=== PATIENT | male | born 1995 | race Caucasian/White ===

== ENCOUNTER 2019-09-23 18:50 | Emergency (ER) | payer SELFPAY ==
[~2019-09-23] VITALS: Ht 180.3 cm; Wt 83.9 kg
[2019-09-23 19:05] VITALS: BP 126/67
--- NOTE | 2019-09-23 19:33 | Emergency Room Report ---
History of Present Illness General Chief Complaint: Upper Respiratory Illness Source: Patient Present Illness HPI 24-year-old male with no significant past medical history here complaining of 2 days of generalized body ache cough and congestion. Denies any recent travel, or being exposed to people who have recently traveled. Denies any fever and chills. Patient is afebrile at triage. Denies chest pain, shortness of breath , palpitation, headache and dizziness. Denies abdominal pain, nausea vomiting. Reports that he took Tylenol for symptom relief. Also reports that he used cocaine in order to break his fever. Wheezing has been auscultated diffusely. Patient denies history of asthma. Does not have an inhaler. Denies all other associated symptoms. Patient is also a heavy tobacco smoker Allergies: Coded Allergies: No Known Allergies (Unverified , 09/23/19) Patient History Past Medical History: see triage record Past Surgical History: none Pertinent Family History: none Social History: Reports: smoking - tobacco, drug use - cocaine Immunizations: UTD Reviewed Nursing Documentation: PMH: Agreed; PSxH: Agreed Nursing Documentation-PMH Past Medical History: No Stated History Review of Systems All Other Systems: negative except mentioned in HPI Physical Exam Vital Signs Date Time Temp Pulse Resp B/P (MAP) Pulse Ox O2 Delivery O2 Flow Rate FiO2 09/23/19 18:59 97.2 67 18 126/67 (86) 100 Room Air Sp02 EP Interpretation: reviewed, normal General Appearance: no apparent distress, alert, GCS 15, non-toxic Head: normocephalic, atraumatic Eyes: bilateral eye normal inspection, bilateral eye PERRL ENT: hearing grossly normal, normal pharynx, no angioedema, normal voice Neck: full range of motion, supple, thyroid normal, no meningismus, no carotid bruits, supple/symm/no masses Respiratory: chest non-tender, lungs clear, normal breath sounds, no rhonchi, no respiratory distress, no retraction, no wheezing, speaking full sentences Cardiovascular #1: regular rate, rhythm, no edema, no murmur Gastrointestinal: normal bowel sounds, non tender, soft, non-distended, no guarding, no rebound Rectal: deferred Genitourinary: no CVA tenderness Musculoskeletal: back normal Neurologic: alert, motor strength/tone normal, oriented x3, sensory intact, responsive, speech normal Psychiatric: judgement/insight normal, memory normal, mood/affect normal, no suicidal/homicidal ideation Skin: no rash Lymphatic: no adenopathy Medical Decision Making PA Attestation All diagnoses and treatment plans were reviewed and discussed with my supervising physician Dr. Bashir Diagnostic Impression: Primary Impression: Upper respiratory infection ER Course 24-year-old male with no significant past medical history here complaining of 2 days of generalized body ache cough and congestion. Denies any recent travel, or being exposed to people who have recently traveled. Denies any fever and chills. Patient is afebrile at triage. Denies chest pain, shortness of breath , palpitation, headache and dizziness. Denies abdominal pain, nausea vomiting. Reports that he took Tylenol for symptom relief. Also reports that he used cocaine in order to break his fever. Wheezing has been auscultated diffusely. Patient denies history of asthma. Does not have an inhaler. Denies all other associated symptoms. Patient is also a heavy tobacco smoker Ddx considered but are not limited to: strep pharyngitis, URI, tonsillitis, peritonsillar abscess, influneza Vital signs: are WNL, pt. is afebrile H&PE are most consistent with: viral URI ORDERS: Chest x-ray, rapid influenza test, albuterol ED INTERVENTIONS: None required at this time. DISCHARGE: At this time pt. is stable for d/c to home. Will provide printed patient care instructions, and any necessary prescriptions. Care plan and follow up instructions have been discussed with the patient prior to discharge. Take medication as directed, follow-up with your primary care provider, if worsening symptoms return to the emergency room Chest X-Ray Diagnostic Results Chest X-Ray Diagnostic Results : Chest X-Ray Ordered: Yes # of Views/Limited/Complete: 1 View Indication: Other - Cough EP Interpretation: Yes PA Xray: Interpretation reviewed, by supervising MD, and agrees with findings. Interpretation: no consolidation, no effusion, no pneumothorax Impression: No acute disease Electronically Signed by: Nicole Dixon PA-C Last Vital Signs Date Time Temp Pulse Resp B/P (MAP) Pulse Ox O2 Delivery O2 Flow Rate FiO2 09/23/19 19:05 67 18 Room Air 09/23/19 19:05 97.2 126/67 100 Disposition: HOME, SELF-CARE Condition: Stable Scripts Albuterol Sulfate (VENTOLIN HFA) 18 Gm Hfa.aer.ad 2 PUFFS INH EVERY 6 HOURS, #18 GM 0 Refills Prov: Nicole Galan 09/23/19 Referrals: NOT CHOSEN IPA/MD,REFERRING (PCP) Patient Instructions: Upper Respiratory Infection, Adult Additional Instructions: Take medication as directed, follow-up with your primary care provider, increase oral hydration, if worsening symptoms return to emergency room Nicole Galan Sep 23, 2019 19:33
[2019-09-23] MEDS ORDERED: VENTOLIN HFA18 GM INH (19:50)
[2019-09-23 20:00] VITALS: BP 126/67
--- NOTE | 2019-09-24 12:51 | Diagnostic Imaging Report ---
Indication: Dyspnea Comparison: None A single view chest radiograph was obtained. Findings: Cardiomediastinal appearance is within normal limits for age. The lungs are clear. Pulmonary vascularity is appropriate. The diaphragmatic contour is smooth and costophrenic angles are sharp. No pleural effusions are identified. The bones are unremarkable. Impression: No acute findings
== END 2019-09-23 20:00 | disposition home or self-care (01) ==
LOC: EMR 19:15
DX: J06.9 Acute upper respiratory infection, unspecified (principal); F17.200 Nicotine dependence, unspecified, uncomplicated
CPT/HCPCS: 71045; 86710; 99283